=== PATIENT | female | born 1955 | race Caucasian/White ===

== ENCOUNTER 2017-07-20 08:18 | Day surgery (SDC) | payer OTHER ==
[2017-07-13 09:58] LABS: HEMATOCRIT 43.6 % (36.0-47.0); HEMOGLOBIN 14.6 g/dL (12.0-15.5); MEAN CORPUSCULAR HEMOGLOBIN 31.9 pg (27.0-33.4); MEAN CORPUSCULAR HGB CONC 33.6 g/dL (32.0-36.0); MEAN CORPUSCULAR VOLUME 95 fl (80-97); PLATELET COUNT 340 10^3/uL (150-450); RED BLOOD COUNT 4.59 10^6/uL (3.72-5.28); RED CELL DISTRIBUTION WIDTH 14.8 % (11.5-14.0); WHITE BLOOD COUNT 9.9 10^3/uL (4.0-10.5)
[2017-07-13 10:16] LABS: ANION GAP 13 (5-19); BLOOD UREA NITROGEN 9 mg/dL (7-20); CALCIUM 9.9 mg/dL (8.4-10.2); CARBON DIOXIDE 25 mmol/L (22-30); CHLORIDE 101 mmol/L (98-107); GLUCOSE 95 mg/dL (75-110); POTASSIUM 4.4 mmol/L (3.6-5.0); SODIUM 138.8 mmol/L (137-145)
--- NOTE | 2017-07-13 10:36 | RADIOLOGY REPORT (SQ) ---
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 NUMBER OF VIEWS: Two view. TECHNIQUE: Frontal and lateral radiographic views of the chest acquired. LIMITATIONS: None. FINDINGS: LUNGS AND PLEURA: No opacities, masses or pneumothorax. No pleural effusion. Attenuated bl ood vessels and flattened lloyd-diaphragms. MEDIASTINUM AND HILAR STRUCTURES: No masses. No contour abnormalities. HEART AND VASCULAR STRUCTURES: Heart normal in size and contour. No evidence for failure. BONES: No acute findings. HARDWARE: None in the chest. OTHER: No other significant finding. IMPRESSION: COPD. NO ACUTE RADIOGRAPHIC FINDING IN THE CHEST. TECHNICAL DOCUMENTATION: JOB ID: [id number] [employer]- All Rights Reserved Reading location - IP/workstation name: [email or web address]
--- NOTE | 2017-07-13 14:36 | EKG REPORT ---
SEVERITY:- BORDERLINE ECG - SINUS RHYTHM NONSPECIFIC ST-T CHANGES- INFERIOR LEADS : Confirmed by: Albert Mitchell MD 13-Jul-2017 14:35:29
[~2017-07-20 08:18] MED LIST: LACTATED RINGERS 1000 ML IV PRN; LIDOCAINE 0.5% INJ-PF (5 MG/ML) 50 ML SDV SUBCUT PRN; LIDOCAINE 4% TRANSPARENT DRESSING 5 GM KIT TP PRN
[2017-07-20] MEDS ORDERED: METHYLENE BLUE 50 MG/10 ML AMPULE ONE (10:26)
[2017-07-20] MEDS ORDERED: LIDOCAINE 1%/EPINEPHRINE INJ 20 ML VIAL ONE (10:26)
[2017-07-20] MEDS ORDERED: FENTANYL CITRATE INJ/PF 100 MCG/2 ML AMPUL ONE (10:30)
[2017-07-20] MEDS ORDERED: ONDANSETRON HCL INJ/PF 4 MG/2 ML SDV ONE (10:30)
[2017-07-20] MEDS ORDERED: MIDAZOLAM 2 MG/2 ML INJ ONE (10:30)
[2017-07-20] MEDS ORDERED: PROPOFOL INJ 200 MG/20 ML VIAL IV ONE (10:31)
[2017-07-20] MEDS ORDERED: ACETAMINOPHEN 100 ML IV ONE (10:31)
--- NOTE | 2017-07-20 11:03 | Operative Report ---
Operative Report DATE OF SURGERY: 07/20/17 PREOPERATIVE DIAGNOSIS: Umbilical hernia with overlying threatened skin POSTOPERATIVE DIAGNOSIS: Same OPERATION: Primary closure of umbilical hernia laparoscopically with 9 cm polypropylene mesh reinforcement intraperitoneal position SURGEON: ARTHUR GAYLE SALES ORDER SPECIALIST: PADMA MUÑOZ ANESTHESIA: GA TISSUE REMOVED OR ALTERED: None COMPLICATIONS: None ESTIMATED BLOOD LOSS: Scant INTRAOPERATIVE FINDINGS: See below PROCEDURE: Patient was taken to the preop holding area to the main operating room where general anesthesia was induced. Arms were abducted, abdomen prepped and draped sterile fashion. Surgical plan surgical timeout conducted Markings were made on the skin for planned 3 port laparoscopic hernia repair. Skin was anesthetized with the plain lidocaine. A left upper quadrant stab was made with a knife Veress needle inserted the peritoneal cavity and pneumoperitoneum was established. The Veress needle was removed, 5 mm port was placed and a 5 mm viewing scope was established. Under direct visualization 2 additional ports were placed one in the left lower quadrant and one in the right mid field for total of 3 ports. Visualization of the peritoneal cavity revealed no evidence of visceral or vascular injury. The umbilical defect was approximately 2 cm in diameter. We elected to proceed with primary closure the fascial defect transversely with a single #1 PDS suture. This was deployed by making a small anna in the skin with 11 blade, and using the disposable suture passer, a [id number] was then secured into position to close the fascial defect completely while taking the pneumoperitoneum tension down. Her graft we now brought onto the field a non- 9 cm Covidien polypropylene Parietex mesh, placed sutures at the 12, 3, 6, 9 o'clock position, rolled the mesh and brought up to the intra-abdominal wall. She was unrolled and brought up against the anterior abdominal wall using the disposable suture passer in uneventful fashion. Knots were secured extracorporeally. We then secured the mesh at the intervening spaces with the disposable sure tack stapler. ApProximally 12 conchis were deployed. The mesh was in excellent position were satisfied with the repair. We felt the operation was complete. We reinspected the peritoneal cavity check for bleeding there was none. Sponge and needle counts are correct. All ports removed under direct visualization, pneumoperitoneum evacuated, and wounds closed with 3-0 Vicryl, benzoin Steri- Strips. Patient tolerated the procedure well, extubated, taken to recovery room in stable condition. The physician talent acquisition assistant, Ms. Thomason, provided assistance during this case by: Assisting and port insertion, retracting tissue, instillation of local anesthesia and closure of skin incisions.
[2017-07-20] MEDS ORDERED: CEFAZOLIN 1 GM/D5W RTU 1 GM/50 ML RTUPB IV ONE (11:08)
--- NOTE | 2017-07-20 11:23 | RADIOLOGY REPORT (SQ) ---
EXAM DESCRIPTION: NM LYMPHATICS/LYMPH GLANDS COMPLETED DATE/TIME: 07/20/2017 10:38 am REASON FOR STUDY: MELANOMA (RT UPPER THIGH) C43.70 MALIGNANT MELANOMA OF UNSPECIFIED LOWER LIMB, IN CLUDI COMPARISON: None. RADIONUCLIDE AND DOSE: 550 microcuries TC-99m tilmanocept - [employer]. The route of agent administration: Subcutaneous in the skin. TECHNIQUE: The skin of the medial right thigh just above the knee was prepped in sterile fashion. T he radiopharmaceutical was administered in equally divided doses in the periareolar breast. LIMITATIONS: None. FINDINGS: Images demonstrate activity at the injection site. There is tracking of activity into in right inguinal lymph node. Findings discussed with Dr. Linn IMPRESSION: [place] node localization for melanoma, right thigh. Right inguinal lymph node is iden tified with activity TECHNICAL DOCUMENTATION: JOB ID: [id number] [employer]- All Rights Reserved Reading location - IP/workstation name: [email or web address]
[2017-07-20] MEDS ORDERED: FENTANYL CITRATE INJ/PF 100 MCG/2 ML AMPUL IV PRN ×3 (12:28)
[2017-07-20] MEDS ORDERED: DIPHENHYDRAMINE HCL 50 MG/ML VIAL IV PRN (12:28)
[2017-07-20] MEDS ORDERED: MEPERIDINE HCL/PF INJ 25 MG/1 ML DISP.SYRIN IV PRN (12:28)
[2017-07-20] MEDS ORDERED: OXYCODONE-ACETAMINOPHEN 5-325 MG TABLET PO PRN ×3 (12:28→12:57)
[2017-07-20] MEDS ORDERED: PROMETHAZINE HCL INJ 25 MG/1 ML VIAL IV PRN ×2 (12:28)
--- NOTE | 2017-07-20 12:41 | Operative Report ---
Nonrecallable Operative Report DATE OF SURGERY: 07/20/17 PREOPERATIVE DIAGNOSIS: Status post shave excision of right inner thigh intermediate thickness melanoma POSTOPERATIVE DIAGNOSIS: Same OPERATION: 1. [place] lymph node biopsy using dual mapping technique right superficial inguinal region. 2. Wide excision of previous melanoma excision site distal medial aspect right inner thigh primary closure SURGEON: ARTHUR GAYLE TECHNICAL REPORT WRITER: PADMA MUÑOZ ANESTHESIA: GA TISSUE REMOVED OR ALTERED: [place] lymph node biopsy 1; wide excision of melanoma excision site COMPLICATIONS: None ESTIMATED BLOOD LOSS: Scant INTRAOPERATIVE FINDINGS: See below PROCEDURE: The patient was seen in the preop holding area after having undergone lymphoscintigraphy of the right lower extremity by Dr. Monique. The patient was found to have an area of increased uptake in the superficial right inguinal lymph node basin. The patient was taken to the main operating room after the right leg was marked. The patient underwent general anesthesia, then had the right leg isolated prepped and draped in a sterile fashion including the right groin. Surgical plan and surgical timeout conducted In conjunction with dual mapping technique, we proceeded with injecting methylene blue approximately 2 cc from frontal fashion around the previous melanoma excision site which was over the medial inner thigh above the knee. The injection was intradermal and successful. The right leg was massaged for approximately 5 minutes. We proceeded first with sentinel lymph node biopsy at the right axilla. There was an area of increased activity right along the mid inguinal crease. Skin was anesthetized 1% plain lidocaine and a 2 cm incision was made over the right inguinal crease. A hot blue sentinel lymph node in the superficial inguinal lissa basin was identified and excised. The in vivo count was approximately 8000 and the ex vivo count approximately 6700. It was sent as sentinel lymph node, right inguinal superficial lissa basin. Background counts were negligible. We felt that this portion of the operation was complete. We had previously marked off since inner distal thigh for planned elliptical wide excision of the previous melanoma site. The included lateral margin of approximately 2 cm and a longitudinal margin of approximately 4 cm so as to produce an ellipse of skin that could be closed longitudinally. Markings were made on the skin, skin anesthetized with 1% plain lidocaine, using a 10 blade, the skin was incised in elliptical fashion. Using electrocautery, the level of dissection was taken down to the superficial fascia of the thigh over the adductor canal. We did not encounter the saphenous vein. The specimen was elevated off of the field, with sutures placed one long silk in the lateral position and assured in the superior position and sent for permanent analysis. We now inspected the operative bed was clean and dry. We elevated the medial lateral deep subcutaneous flaps and now closed the wound in layers with 3-0 Vicryl 2-0 Vicryl and a penaloza glue. No drain was placed. The right groin incision was closed with interrupted 3-0 Vicryl suture. Dermabond glue was placed here as well. Sterile dressings were applied, compression dressing applied on the right groin incision and the leg wrapped with full range then 6 inch Jb wrap. The patient will have a knee immobilizer installed in the recovery room. Patient tolerated procedure well, extubated, taken recovery in stable condition. The physician veterinarian assistant, Ms. Thomason, provided assistance during this case by: Assisting retracting tissue, instillation of local anesthesia and closure of skin incisions.
--- NOTE | 2017-07-20 12:55 | Discharge Summary ---
Discharge Summary (SDC) - Discharge Final Diagnosis: Melanoma of right thigh Date of Surgery: 07/20/17 Discharge Date: 07/20/17 Condition: Stable Treatment or Instructions: WOUND CARE: You may shower in 24 hours. Do not scrub either incision. Warm water and soap may wash over the area. Pat area dry and cover if needed. Avoid bending knee if possible. PAIN MANAGEMENT: Take one toradol by mouth every six hours as needed for pain. FOLLOW UP: Follow up at [facility] in 7-10 days. Call sooner with questions/ concerns or if area becomes red, swollen, or foul-smelling drainage. Prescriptions: Ketorolac Tromethamine [Toradol 10 mg Tablet] 10 mg PO Q6HP PRN #20 tablet PRN Reason: Referrals: JESSICA PICKARD MD [Primary Care Provider] - Discharge Diet: As Tolerated Discharge Activity: No Lifting/Push/Pulling, Walk Frequently Report the Following to Your Physician Immediately: Fever over 101 Degrees, Unusual Bleeding, Swelling, Warmth, Increased Soreness, Drainage-Foul Smelling
[2017-07-20 15:28] VITALS: BP 135/68
== END 2017-07-20 14:35 | disposition home or self-care (01) ==
LOC: OROUT 08:18
PROVIDERS: ATTEND Surgery
PROC: 0JBL0ZZ Excision of Right Upper Leg Subcutaneous Tissue and Fascia, Open Approach (ICD-10-PCS; principal; 2017-07-20 11:45)
DX: C43.71 Malignant melanoma of right lower limb, including hip (principal); E11.9 Type 2 diabetes mellitus without complications; I10 Essential (primary) hypertension; F17.210 Nicotine dependence, cigarettes, uncomplicated; Z88.1 Allergy status to other antibiotic agents; Z79.899 Other long term (current) drug therapy; Z80.8 Family history of malignant neoplasm of other organs or systems
CPT/HCPCS: 93005; 36415; 82962; 85027; 80048; 88305 ×2; 88307 ×2; 71046; 78195; 93010; 11600; 38999; L1830; A9520; J2250; J0690; J3010; J3490 ×2; J2405; J2704; J0131; Q9968; 400